=== PATIENT | male | born 1975 ===

== ENCOUNTER 2016-11-02 20:20 | Emergency (ER) | payer SELFPAY ==
[2016-11-02 20:39] VITALS: BP 146/80; PULSE 103; RESP 20; TEMP 98.5; O2SAT 96
[2016-11-02] MEDS ORDERED: Naproxen 550 mg Tab PO STA (22:09)
[2016-11-02] MEDS ORDERED: Naproxen 550 mg Tab PO ONE (22:21)
--- NOTE | 2016-11-02 22:23 | C.PDOC ---
History Of Present Illness A 41 y/o male c/o bilateral lower back pain that radiates to the lower legs with tingling sensations and numbness to the right leg and toes for 4 months. Pt notes that the symptoms has been worsening for the past 3 weeks and pain is worse when laying down. Pt reports taking OTC medications with no relief in pain. Pt notes dark red urine and frequent urination, but denies fever, chills, incontinence of urine or bowel, weakness, or any other complaints. Time Seen by Provider: 11/02/16 21:58 Chief Complaint (Nursing): Back Pain History Per: Patient History/Exam Limitations: no limitations Onset/Duration Of Symptoms: Days Current Symptoms Are (Timing): Still Present Quality Of Discomfort: "Pain", Other Severity: Mild Previous Symptoms: Back Pain Exacerbating Factor(s): Other (Laying) Recent travel outside of the [place]: No Additional History Per: Patient Past Medical History Reviewed: Historical Data, Nursing Documentation, Vital Signs Vital Signs: Last Vital Signs Temp 98.5 F 11/02/16 20:37 Pulse 103 H 11/02/16 20:37 Resp 20 11/02/16 23:25 BP 146/80 11/02/16 20:37 Pulse Ox 96 11/04/16 04:13 Family History: States: Unknown Family Hx - Social History Hx Alcohol Use: Yes Hx Substance Use: Yes - Immunization History Hx Tetanus Toxoid Vaccination: Yes Hx Influenza Vaccination: Yes Hx Pneumococcal Vaccination: Yes Review Of Systems Constitutional: Negative for: Fever, Chills Genitourinary: Positive for: Frequency (Urination), Other (Dark color urine). Negative for: Incontinence (Bladder or bowel) Musculoskeletal: Positive for: Back Pain (Bilateral lower back pain), Leg Pain ( Right leg pain and numbness), Foot Pain (Right toes numbness and tingling) Neurological: Positive for: Numbness (Tingling sensation to the right leg and toes). Negative for: Weakness Physical Exam - Physical Exam Appears: Non-toxic, No Acute Distress Skin: Warm, Dry Head: Atraumatic, Normacephalic Eye(s): bilateral: Normal Inspection Gastrointestinal/Abdominal: Soft, No Tenderness Back: Paraspinal Tenderness (Paralumbar tenderness) Extremity: Normal ROM, No Pedal Edema, No Calf Tenderness, Capillary Refill (< 2secs), No Deformity, No Swelling, Other (Good leg strength) Pulses: Left Dorsalis Pedis: Normal, Right Dorsalis Pedis: Normal Neurological/Psych: Oriented x3, Normal Speech, Normal Motor, Normal Sensation, Normal Reflexes Gait: Steady ED Course And Treatment O2 Sat by Pulse Oximetry: 96 (RA) Pulse Ox Interpretation: Normal Progress Note: Impression: 41 y/o male c/o bilateral back pain that radiates to the lower legs with tingling sensations and numbness to the right leg and toes for 4 months. Plans: Anaprox, UA, reassess. Pt eloped prior to UA and reevaluation Disposition - Disposition Disposition: ELOPEMENT - ER ONLY Disposition Time: 23:30 Condition: STABLE - Clinical Impression Clinical Impression: Chronic pain - Scribe Statement The provider has reviewed the documentation as recorded by the Scribjose lee All medical record entries made by the Scribe were at my direction and personally dictated by me. I have reviewed the chart and agree that the record accurately reflects my personal performance of the history, physical exam, medical decision making, and the department course for this patient. I have also personally directed, reviewed, and agree with the discharge instructions and disposition.
[2016-11-02 22:30] LABS: RBC URINE < 1 /hpf (0-3); URINE BILIRUBIN NEGATIVE (NEGATIVE); URINE BLOOD NEGATIVE (NEGATIVE); URINE COLOR Yellow (YELLOW); URINE GLUCOSE (UA) NORMAL (Normal); URINE KETONE TRACE mg/dL (NEGATIVE); URINE LEUKOCYTE ESTERASE NEG Leu/uL (Negative); URINE PROTEIN NEGATIVE (NEGATIVE); WBC URINE 5 /hpf (0-5)
== END 2016-11-02 23:25 | disposition left against medical advice (07) ==
LOC: C.ER 20:20
DX: G89.29 Other chronic pain (principal); M54.5 Low back pain